=== PATIENT | female | born 1995 | race Asian ===

== ENCOUNTER 2019-08-30 13:56 | Emergency (ER) | payer MEDICAID, OTHER ==
[~2019-08-30] VITALS: Ht 149.9 cm; Wt 43.2 kg
[2019-08-30] MEDS ORDERED: LEVO125 PO (14:23)
[2019-08-30] MEDS ORDERED: KETOROLAC TROMETHAMINE 30 MG/ML VIAL IM ONE (16:15)
[2019-08-30] MEDS ORDERED: METHOCARBAMOL 500 MG TABLET PO ONE (16:15)
[2019-08-30 16:38] VITALS: BP 115/68
== END 2019-08-30 17:20 | disposition home or self-care (01) ==
LOC: EMS 14:02
DX: S20.211A Contusion of right front wall of thorax, initial encounter (principal); S40.011A Contusion of right shoulder, initial encounter; E03.9 Hypothyroidism, unspecified; Z98.890 Other specified postprocedural states; Z79.899 Other long term (current) drug therapy; V49.9XXA Car occupant (driver) (passenger) injured in unspecified traffic accident, initial encounter; Y93.89 Activity, other specified; Y92.488 Other paved roadways as the place of occurrence of the external cause; Y99.8 Other external cause status
CPT/HCPCS: 71045; 81002; 81025; 96372; 99283; J1885